=== PATIENT | male | born 2000 | race Caucasian/White ===

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

== ENCOUNTER 2022-06-02 16:36 | Emergency (ER) | payer OTHER ==
[~2022-06-02] VITALS: Ht 175.3 cm; Wt 77.8 kg
[~2022-06-02 16:36] MED LIST: STRA10CA PO
[2022-06-02 16:38] VITALS: BP 118/72
[2022-06-02] MEDS ORDERED: DEBR6.5S4 OTIC (19:22)
== END 2022-06-02 19:28 | disposition home or self-care (01) ==
LOC: M ED 16:36
DX: H92.02 Otalgia, left ear (principal); H61.22 Impacted cerumen, left ear; F39 Unspecified mood [affective] disorder; Z79.899 Other long term (current) drug therapy

== ENCOUNTER 2022-07-05 22:25 | Emergency (ER) | payer OTHER ==
[~2022-07-05] VITALS: Ht 180.3 cm; Wt 80.4 kg
[2022-07-05 22:25] VITALS: BP 113/53
[~2022-07-05 22:25] MED LIST changes: +DEBR6.5S4 OTIC
== END 2022-07-06 05:48 | disposition home or self-care (01) ==
LOC: M ED 22:25
DX: H61.21 Impacted cerumen, right ear (principal); F06.31 Mood disorder due to known physiological condition with depressive features; F12.10 Cannabis abuse, uncomplicated

== ENCOUNTER 2022-07-23 21:56 | Emergency (ER) | payer OTHER ==
[~2022-07-23] VITALS: Ht 180.3 cm; Wt 78.4 kg
[2022-07-23 21:58] VITALS: BP 121/59
== END 2022-07-24 03:34 | disposition left against medical advice (07) ==
LOC: M ED 21:56
DX: Z53.21 Procedure and treatment not carried out due to patient leaving prior to being seen by health care provider (principal)

== ENCOUNTER 2022-12-30 02:27 | Emergency (ER) | payer OTHER ==
[2022-12-30 02:28] VITALS: BP 127/60
[2022-12-30] MEDS ORDERED: BACT800T5 PO (06:18)
== END 2022-12-30 06:24 | disposition home or self-care (01) ==
LOC: M ED 02:27
DX: L73.9 Follicular disorder, unspecified (principal); F17.200 Nicotine dependence, unspecified, uncomplicated; F10.10 Alcohol abuse, uncomplicated; F12.10 Cannabis abuse, uncomplicated; Z79.899 Other long term (current) drug therapy